=== PATIENT | female | born 1980 | race American Indian/Alaskan Native ===

== ENCOUNTER 2018-06-22 16:59 | Inpatient (IN) | payer BC ==
--- NOTE | 2018-06-22 17:34 | Emergency Department Report ---
Blank Doc - Documentation Documentation: This is a 37-year-old female that presents with uncontrolled blood pressure with left bicep pain. Stated has intermittent chest pain with no SOB. This initial assessment/diagnostic orders/clinical plan/treatment(s) is/are subject to change based on patient's health status, clinical progression and re- assessment by fellow clinical providers in the ED. Further treatment and workup at subsequent clinical providers discretion. Patient/guardians urged not to elope from the ED as their condition may be serious if not clinically assessed and managed. Initial orders include: 1- Patient sent to MAIN for further evaluation and treatment 2- EKg 3- labs 4- CXR
--- NOTE | 2018-06-22 18:20 | XRay Report ---
PROCEDURE: XR CHEST ROUTINE 2V TECHNIQUE: 2 view chest HISTORY: Chest Pain COMPARISONS: FINDINGS: Cardiac and mediastinal contours are unremarkable. No focal pulmonary infiltrate identified. No pleur al fluid collection seen. Pulmonary vasculature is unremarkable IMPRESSION: Negative two-view chest. This document is electronically signed by Michael Radford MD., June 22 2018 06:17:56 PM ET
[2018-06-22 18:24] LABS: BUN/Creatinine Ratio 10; Blood Urea Nitrogen 8 mg/dL (7-17); Calcium 9.6 mg/dL (8.4-10.2); Eosinophils % (Auto) 0.5 % (0.0-4.3); Hematocrit 41.2 % (30.3-42.9); Hemoglobin 13.1 gm/dl (10.1-14.3); Hemolysis Index 19; Lymphocytes % (Auto) 32.5 % (13.4-35.0); Mean Corpuscular HGB Conc 32 % (30-34); Mean Corpuscular Volume 74 fl (79-97); Monocytes % (Auto) 13.2 % (0.0-7.3); Platelet Count 295 K/mm3 (140-440); Red Blood Count 5.57 M/mm3 (3.65-5.03); Red Cell Distribution Width 15.8 % (13.2-15.2)
[2018-06-22 18:25] LABS: INR 0.84 (0.87-1.13); Lymphocytes # (Auto) 1.1 K/mm3 (1.2-5.4); Monocytes # (Auto) 0.4 K/mm3 (0.0-0.8)
[2018-06-22 18:26] LABS: Partial Thromboplastin Time 23.5 Sec. (24.2-36.6)
--- NOTE | 2018-06-22 20:34 | Emergency Department Report ---
ED Chest Pain HPI - General Chief Complaint: High BP Stated Complaint: HBP Time Seen by Provider: 06/22/18 17:32 Source: patient, RN notes reviewed Mode of arrival: Ambulatory Limitations: No Limitations - History of Present Illness Initial Comments: Primary care doctor: Dr. Mcintyre Past medical history hypertension, currently on metoprolol This is a 37-year-old female, not known to this provider previously, who presents to the emergency room with a complaint of nontraumatic central chest pain, and associated left arm pain and numbness. The symptoms started at 12:00, and they're intermittent. The chest pain does not radiate to the back, arms or neck. There is positive nausea, no vomiting, there is questionable diaphoresis, the patient denies shortness of breath. The patient denies recent aspirin use, and denies DVT, pulmonary embolus risk factors. Patient indicates no recent cardiac risk stratification. The pain does not have exacerbating or relieving factors. The patient reports that since her blood pressure medicine was changed, from a medication that she cannot recall, 2 metoprolol, approximately 1-2 weeks ago, she has been having episodes of chest discomfort. However, the associated left arm discomfort, nausea, questionable diaphoresis are new for the patient. MD Complaint: chest pain -: Gradual, hour(s), days(s) Onset: during rest Pain Location: substernal Severity: moderate Severity scale (0 -10): 8 Quality: aching Consistency: intermittent Improves With: nothing Worsens With: nothing re: nausea, diaphoresis Aspirin use within the Past 7 Days: (0) No - Related Data On Oral Contraceptives: No Home Medications Medication Instructions Recorded Confirmed Last Taken Mag Hydrox/Aluminum Hyd/Simeth 05/20/13 05/20/13 Unknown [Maalox Advanced Suspension] Previous Rx's Medication Instructions Recorded Last Taken Type Omeprazole [Prilosec] 20 mg PO QDAY #20 capsule. 05/20/13 Unknown Rx Allergies Allergy/AdvReac Type Severity Reaction Status Date / Time No Known Allergies Allergy Unverified 05/20/13 16:33 Heart Score - HEART Score History: Moderately suspicious EKG: Non-specific Age: < 45 Risk factors: 1-2 risk factors Troponin: < normal limit HEART Score: 3 - Critical Actions Critical Actions: 0-3 pts:0.9-1.7%risk of adverse cardiac event.Candidate for discharge ED Review of Systems ROS: Stated complaint: HBP Other details as noted in HPI Constitutional: denies: fever, malaise Eyes: denies: vision change ENT: denies: throat pain Respiratory: denies: cough Cardiovascular: chest pain Gastrointestinal: nausea. denies: abdominal pain Genitourinary: denies: dysuria Musculoskeletal: denies: back pain Skin: denies: lesions Neurological: denies: weakness Psychiatric: anxiety ED Past Medical Hx - Past Medical History Hx Hypertension: Yes - Surgical History Past Surgical History?: No - Social History Smoking Status: Former Smoker Substance Use Type: Alcohol - Medications Home Medications: Home Medications Medication Instructions Recorded Confirmed Last Taken Type Mag Hydrox/Aluminum Hyd/Simeth 05/20/13 05/20/13 Unknown History [Maalox Advanced Suspension] Omeprazole [Prilosec] 20 mg PO QDAY #20 capsule. 05/20/13 Unknown Rx ED Physical Exam - General Limitations: No Limitations General appearance: alert, in no apparent distress - Head Head exam: Present: atraumatic, normocephalic - Eye Eye exam: Present: normal appearance, EOMI. Absent: nystagmus - ENT ENT exam: Present: normal exam, normal orophraynx, mucous membranes moist, normal external ear exam - Neck Neck exam: Present: normal inspection, full ROM. Absent: tenderness, meni ngismus - Respiratory Respiratory exam: Present: normal lung sounds bilaterally. Absent: respiratory distress - Cardiovascular Cardiovascular Exam: Present: regular rate, normal rhythm, normal heart sounds. Absent: bradycardia, tachycardia, irregular rhythm, systolic murmur, diastolic murmur, rubs, gallop - GI/Abdominal GI/Abdominal exam: Present: soft. Absent: distended, tenderness, guarding, rebound, rigid, pulsatile mass - Extremities Exam Extremities exam: Present: normal inspection (2+ pulses noted in the bilateral upper, lower extremities. Compartments soft. No long bony tenderness. The pelvis is stable.), full ROM, other (there is no palpable cord. There is negative Homans sign.). Absent: pedal edema, joint swelling, calf tenderness - Back Exam Back exam: Present: normal inspection, full ROM. Absent: tenderness, CVA tenderness (R), paraspinal tenderness, vertebral tenderness - Neurological Exam Neurological exam: Present: alert, other (Extraocular movements intact. Tongue midline. No facial droop. Facial sensation intact to light touch in the V1, V2, V3 distribution bilaterally. 5 and 5 strength in 4 extremities.. Sensation is intact to light touch in 4 extremities.). Absent: motor sensory deficit - Psychiatric Psychiatric exam: Present: normal affect, normal mood - Skin Skin exam: Present: warm, dry, intact, normal color. Absent: rash ED Course Vital Signs 06/22/18 06/22/18 17:27 20:35 Temperature 98.1 F 98.3 F Pulse Rate 89 74 Respiratory 20 15 Rate Blood Pressure 172/101 Blood Pressure 141/90 [Right] O2 Sat by Pulse 100 100 Oximetry CHRIS score - Chris Score Age > 65: (0) No Aspirin use within the Past 7 Days: (0) No 3 or more CAD Risk Factors: (0) No 2 or more Angina events in past 24 hrs: (0) No Known CAD with more than 50% Stenosis: (0) No Elevated Cardiac Markers: (0) No ST Deviation Greater than 0.5mm: (0) No CHRIS Score: 0 ED Medical Decision Making - Lab Data Result diagrams: 06/22/18 17:47 06/22/18 17:47 Vital Signs 06/22/18 06/22/18 17:27 20:35 Temperature 98.1 F 98.3 F Pulse Rate 89 74 Respiratory 20 15 Rate Blood Pressure 172/101 Blood Pressure 141/90 [Right] O2 Sat by Pulse 100 100 Oximetry Lab Results 06/22/18 06/22/18 06/22/18 Range/Units 17:47 17:47 17:47 WBC 3.4 L (4.5-11.0) K/mm3 RBC 5.57 H (3.65-5.03) M/mm3 Hgb 13.1 (10.1-14.3) gm/dl Hct 41.2 (30.3-42.9) % MCV 74 L (79-97) fl MCH 24 L (28-32) pg MCHC 32 (30-34) % RDW 15.8 H (13.2-15.2) % Plt Count 295 (140-440) K/mm3 Lymph % (Auto) 32.5 (13.4-35.0) % [place] % (Auto) 13.2 H (0.0-7.3) % Eos % (Auto) 0.5 (0.0-4.3) % Baso % (Auto) 1.0 (0.0-1.8) % Lymph # 1.1 L (1.2-5.4) K/mm3 [place] # 0.4 (0.0-0.8) K/mm3 Eos # 0.0 (0.0-0.4) K/mm3 Baso # 0.0 (0.0-0.1) K/mm3 Seg Neutrophils % 52.8 (40.0-70.0) % Seg Neutrophils # 1.8 (1.8-7.7) K/mm3 PT 12.0 L (12.2-14.9) Sec. INR 0.84 L (0.87-1.13) APTT 23.5 L (24.2-36.6) Sec. Sodium 139 (137-145) mmol/L Potassium 4.5 (3.6-5.0) mmol/L Chloride 99.1 (98-107) mmol/L Carbon Dioxide 29 (22-30) mmol/L Anion Gap 15 mmol/L BUN 8 (7-17) mg/dL Creatinine 0.8 (0.7-1.2) mg/dL Estimated GFR > 60 ml/min BUN/Creatinine Ratio 10 % Glucose 90 (65-100) mg/dL Calcium 9.6 (8.4-10.2) mg/dL Troponin T < 0.010 (0.00-0.029) ng/mL - EKG Data -: EKG Interpreted by [place] EKG shows normal: sinus rhythm Rate: normal - EKG Data When compared to previous EKG there are: previous EKG unavailable 06/22/18 20:50 Sinus rhythm, left axis deviation, left anterior fascicular block, QTC within normal limits, abnormal EKG, atrial enlargement, not consistent with ST elevation myocardial infarction. there is no prior EKG available for comparison. - Radiology Data Radiology results: report reviewed, image reviewed X-ray the chest is interpreted as negative for acute disease. - Medical Decision Making Differential diagnosis, including but not limited to: GERD, gastritis, hiatal hernia, pneumonia, acute coronary syndrome Assessment and plan: 37-year-old female with hypertension, reports no recent , does not take oral contraceptives, denies having delivered a child within the past 6 weeks, low risk by well's criteria, no pulmonary embolus or DVT risk factors, perc negative, presenting with chest pain, nausea, and left arm pain. Patient has an abnormal EKG and is found to be hypertensive. X-ray of the chest unremarkable, patient has equal pulses in the bilateral upper, lower extremities, and no recent cardiac risk stratification. I have recommended admission to the hospital for cardiac risk certification, and the patient is amenable to this plan of care. Blood pressure is improved at the 140s, she will be given Pepcid, aspirin, as she did not should glycerin. Nurse practitioner,Giancarlo Sosa, is going to admit the patient to the medical service for cardiac risk stratification. Critical care attestation.: If time is entered above; I have spent that time in minutes in the direct care of this critically ill patient, excluding procedure time. ED Disposition Clinical Impression: Chest pain, Hypertension, Abnormal EKG Disposition: OP ADMIT IP TO THIS HOSP Is pt being admited?: Yes Condition: Good Instructions: Chest Pain (ED), Hypertension (ED) Referrals: DR. JANELL [Other] - 3-5 Days
[2018-06-22] MEDS ORDERED: PEPCID PO ONE (20:42)
[2018-06-22] MEDS ORDERED: NITROSTAT SL PRN (20:42)
[2018-06-22] MEDS ORDERED: ASPIRIN PO ONE (20:42)
[2018-06-22] MEDS ORDERED: ZOFRAN IV PRN (21:10)
[2018-06-22] MEDS ORDERED: MORPHINE IV PRN (21:10)
[2018-06-22] MEDS ORDERED: SODIUM CHLORIDE FLUSH SYRINGE 10 ML IV PRN ×2 (21:10)
[2018-06-22] MEDS ORDERED: TYLENOL PO PRN (21:10)
--- NOTE | 2018-06-22 21:35 | History and Physical Report ---
<LUIZA PATEL - Last Filed: 06/23/18 01:00> History of Present Illness Date of examination: 06/22/18 Date of admission: 06/22/18 Chief complaint: Chest pain, hypertension History of present illness: Pt is a 37-year-old female with PMHx of HTN, vitamine D deficiency who presents to the ER with complaint chest pain, and associated left arm pain and numbness. Pt states that the symptoms started while she was at work today, she describe a midsternal chest pressure, radiating to the left arms. Pt denied any palpitation, denies any SOB, denies nausea, denies vomiting, denies diaphoresis, denies headache. Patient states that she had experienced the same chest pain earlier in the week, she took her blood pressure at that time and it was elevated, 3 days ago she saw her PCP who had changed her medication for the 3rd time, she was started on Lopressor because her heart rate was also elevated. Pt denies cigarette smoking, she used to smoke 3 cigarettes per day but quit 6 months ago, she denies alcohol used, denies any other medical problem. In the ER physician EKG showed no ST BMI criteria, BP was elevated to 172/101, cardiac enzymes were negative, patient is admitted for further evaluation of the chest. Past History Past Medical History: hypertension Past Surgical History: Social history: lives with family (child) Family history: other (mother of sarcoidoses and heart failure) Medications and Allergies Allergies Allergy/AdvReac Type Severity Reaction Status Date / Time No Known Allergies Allergy Unverified 05/20/13 16:33 Home Medications Medication Instructions Recorded Confirmed Last Taken Type Metoprolol [Lopressor] 25 mg PO DAILY 06/22/18 06/22/18 Unknown History Active Meds: Active Medications Nitroglycerin (Nitrostat) 0.4 mg SL .Q5MIN PRN PRN Reason: Chest Pain Review of Systems Cardiovascular: chest pain Musculoskeletal: shooting arm pain Exam - Constitutional Vitals: Temp Pulse Resp BP Pulse Ox 98.3 F 74 15 141/90 100 06/22/18 20:35 06/22/18 20:35 06/22/18 20:35 06/22/18 20:35 06/22/18 20:35 General appearance: Present: no acute distress - EENT Eyes: Present: EOM intact ENT: hearing intact - Neck Neck: Present: supple - Respiratory Respiratory effort: normal Respiratory: bilateral: CTA - Cardiovascular Rhythm: regular - Extremities Extremities: no ischemia Peripheral Pulses: within normal limits - Abdominal General gastrointestinal: Present: non-tender, non-distended Female genitourinary: Present: deferred - Rectal Rectal Exam: deferred - Integumentary Integumentary: Present: warm, dry - Musculoskeletal Musculoskeletal: generalized weakness - Psychiatric Psychiatric: appropriate mood/affect, cooperative - Neurologic Neurologic: moves all extremities - Allied Health Allied health notes reviewed: nursing Results - Labs CBC & Chem 7: 06/22/18 21:47 06/22/18 21:47 Labs: Laboratory Last Values WBC 3.4 K/mm3 (4.5-11.0) L 06/22/18 17:47 RBC 5.57 M/mm3 (3.65-5.03) H 06/22/18 17:47 Hgb 13.1 gm/dl (10.1-14.3) 06/22/18 17:47 Hct 41.2 % (30.3-42.9) 06/22/18 17:47 MCV 74 fl (79-97) L 06/22/18 17:47 MCH 24 pg (28-32) L 06/22/18 17:47 MCHC 32 % (30-34) 06/22/18 17:47 RDW 15.8 % (13.2-15.2) H 06/22/18 17:47 Plt Count 295 K/mm3 (140-440) 06/22/18 17:47 Lymph % (Auto) 32.5 % (13.4-35.0) 06/22/18 17:47 [place] % (Auto) 13.2 % (0.0-7.3) H 06/22/18 17:47 Eos % (Auto) 0.5 % (0.0-4.3) 06/22/18 17:47 Baso % (Auto) 1.0 % (0.0-1.8) 06/22/18 17:47 Lymph # 1.1 K/mm3 (1.2-5.4) L 06/22/18 17:47 [place] # 0.4 K/mm3 (0.0-0.8) 06/22/18 17:47 Eos # 0.0 K/mm3 (0.0-0.4) 06/22/18 17:47 Baso # 0.0 K/mm3 (0.0-0.1) 06/22/18 17:47 Seg Neutrophils % 52.8 % (40.0-70.0) 06/22/18 17:47 Seg Neutrophils # 1.8 K/mm3 (1.8-7.7) 06/22/18 17:47 PT 12.0 Sec. (12.2-14.9) L 06/22/18 17:47 INR 0.84 (0.87-1.13) L 06/22/18 17:47 APTT 23.5 Sec. (24.2-36.6) L 06/22/18 17:47 Sodium 139 mmol/L (137-145) 06/22/18 17:47 Potassium 4.5 mmol/L (3.6-5.0) 06/22/18 17:47 Chloride 99.1 mmol/L (98-107) 06/22/18 17:47 Carbon Dioxide 29 mmol/L (22-30) 06/22/18 17:47 Anion Gap 15 mmol/L 06/22/18 17:47 BUN 8 mg/dL (7-17) 06/22/18 17:47 Creatinine 0.8 mg/dL (0.7-1.2) 06/22/18 17:47 Estimated GFR > 60 ml/min 06/22/18 17:47 BUN/Creatinine Ratio 10 % 06/22/18 17:47 Glucose 90 mg/dL (65-100) 06/22/18 17:47 Calcium 9.6 mg/dL (8.4-10.2) 06/22/18 17:47 Troponin T < 0.010 ng/mL (0.00-0.029) 06/22/18 17:47 Assessment and Plan Assessment and plan: 1. Chest pain rule out ACS 2. Accelerated hypertension 3. Vitamin D deficiency Plan: Admit to med telemetry Continue cardiac enzymes every 62 Vital signs per unit routine Cardiac diet/nothing by mouth postmidnight Stress test in the morning Resume home meds Discipline in the a.m. if stress test negative Plan of care was discussed with patient, who voiced understanding Patient's condition and plan of care was discussed with Dr. Mcfadden Advance Directives: Yes VTE prophylaxis?: Mechanical Plan of care discussed with patient/family: Yes <ORLANDO MCFADDEN - Last Filed: 06/23/18 05:16> History of Present Illness Date of admission: 06/22/18 22:31 Medications and Allergies Active Meds: Active Medications Acetaminophen (Tylenol) 650 mg PO Q4H PRN PRN Reason: Pain MILD(1-3)/Fever >100.5/CROSS Aspirin (Ecotrin) 325 mg PO QDAY [facility] Morphine Sulfate (Morphine) 2 mg IV Q4H PRN PRN Reason: Pain, Moderate (4-6) Nitroglycerin (Nitrostat) 0.4 mg SL .Q5MIN PRN PRN Reason: Chest Pain Ondansetron HCl (Zofran) 4 mg IV Q8H PRN PRN Reason: Nausea And Vomiting Sodium Chloride (Sodium Chloride Flush Syringe 10 Ml) 10 ml IV PRN PRN PRN Reason: LINE FLUSH Sodium Chloride (Sodium Chloride Flush Syringe 10 Ml) 10 ml IV PRN PRN PRN Reason: LINE FLUSH Sodium Chloride (Sodium Chloride Flush Syringe 10 Ml) 10 ml IV BID [facility] Last Admin: 06/22/18 23:25 Dose: 10 ml Documented by: Exam - Constitutional Vitals: Temp Pulse Resp BP Pulse Ox 98.6 F 70 16 140/79 95 06/23/18 00:15 06/23/18 01:07 06/23/18 01:07 06/23/18 00:15 06/23/18 01:07 Results - Labs CBC & Chem 7: 06/22/18 21:47 06/22/18 21:47 Labs: Laboratory Last Values WBC 3.3 K/mm3 (4.5-11.0) L 06/22/18 21:47 RBC 5.23 M/mm3 (3.65-5.03) H 06/22/18 21:47 Hgb 12.2 gm/dl (10.1-14.3) 06/22/18 21:47 Hct 39.0 % (30.3-42.9) 06/22/18 21:47 MCV 75 fl (79-97) L 06/22/18 21:47 MCH 23 pg (28-32) L 06/22/18 21:47 MCHC 31 % (30-34) 06/22/18 21:47 RDW 15.8 % (13.2-15.2) H 06/22/18 21:47 Plt Count 269 K/mm3 (140-440) 06/22/18 21:47 Lymph % (Auto) 42.5 % (13.4-35.0) H 06/22/18 21:47 [place] % (Auto) 13.9 % (0.0-7.3) H 06/22/18 21:47 Eos % (Auto) 0.7 % (0.0-4.3) 06/22/18 21:47 Baso % (Auto) 1.0 % (0.0-1.8) 06/22/18 21:47 Lymph # 1.4 K/mm3 (1.2-5.4) 06/22/18 21:47 [place] # 0.5 K/mm3 (0.0-0.8) 06/22/18 21:47 Eos # 0.0 K/mm3 (0.0-0.4) 06/22/18 21:47 Baso # 0.0 K/mm3 (0.0-0.1) 06/22/18 21:47 Seg Neutrophils % 41.9 % (40.0-70.0) 06/22/18 21:47 Seg Neutrophils # 1.4 K/mm3 (1.8-7.7) L 06/22/18 21:47 PT 12.0 Sec. (12.2-14.9) L 06/22/18 17:47 INR 0.84 (0.87-1.13) L 06/22/18 17:47 APTT 23.5 Sec. (24.2-36.6) L 06/22/18 17:47 Sodium 139 mmol/L (137-145) 06/22/18 21:47 Potassium 4.5 mmol/L (3.6-5.0) 06/22/18 21:47 Chloride 100.8 mmol/L (98-107) 06/22/18 21:47 Carbon Dioxide 25 mmol/L (22-30) 06/22/18 21:47 Anion Gap 18 mmol/L 06/22/18 21:47 BUN 7 mg/dL (7-17) 06/22/18 21:47 Creatinine 0.7 mg/dL (0.7-1.2) 06/22/18 21:47 Estimated GFR > 60 ml/min 06/22/18 21:47 BUN/Creatinine Ratio 10 % 06/22/18 21:47 Glucose 82 mg/dL (65-100) 06/22/18 21:47 Calcium 8.9 mg/dL (8.4-10.2) 06/22/18 21:47 Troponin T < 0.010 ng/mL (0.00-0.029) 06/22/18 21:04 Triglycerides 71 mg/dL (2-149) 06/22/18 21:47 Cholesterol 163 mg/dL (50-199) 06/22/18 21:47 LDL Cholesterol Direct 110 mg/dL (50-130) 06/22/18 21:47 HDL Cholesterol 41 mg/dL (40-59) 06/22/18 21:47 Cholesterol/HDL Ratio 3.97 % 06/22/18 21:47 Assessment and Plan Assessment and plan: 37-year-old and a history of hypertension plus emergency room with complaints of chest pain 3 days. Medication was recently switched, chest pain started at the onset, her blood pressures been uncontrolled. Evaluate cardiac enzymes and stress test as discussed above, patient seen and examined with nurse practitioner. Follow-up med Rec
[2018-06-22 22:12] LABS: Eosinophils % (Auto) 0.7 % (0.0-4.3); Hemoglobin 12.2 gm/dl (10.1-14.3); Lymphocytes # (Auto) 1.4 K/mm3 (1.2-5.4); Lymphocytes % (Auto) 42.5 % (13.4-35.0); Mean Corpuscular HGB Conc 31 % (30-34); Mean Corpuscular Volume 75 fl (79-97); Monocytes # (Auto) 0.5 K/mm3 (0.0-0.8); Monocytes % (Auto) 13.9 % (0.0-7.3); Platelet Count 269 K/mm3 (140-440); Red Blood Count 5.23 M/mm3 (3.65-5.03); Red Cell Distribution Width 15.8 % (13.2-15.2)
[2018-06-22 22:29] LABS: BUN/Creatinine Ratio 10; Blood Urea Nitrogen 7 mg/dL (7-17); Calcium 8.9 mg/dL (8.4-10.2); Hemolysis Index 7
[2018-06-22] MEDS: SODIUM CHLORIDE FLUSH SYRINGE 10 ML IV SCH (23:25)
[2018-06-22 23:36] LABS: Chol/HDL Ratio 3.97 %
[2018-06-23] MEDS ORDERED: APRESOLINE IV PRN (05:16)
[2018-06-23] MEDS ORDERED: ECOTRIN PO SCH (10:00)
[2018-06-23] MEDS: SODIUM CHLORIDE FLUSH SYRINGE 10 ML IV SCH (11:36)
[2018-06-23 12:19] VITALS: BP 134/75
--- NOTE | 2018-06-23 12:50 | Progress Note ---
Assessment and Plan Assessment and plan: Chest pain. Await Lexiscan results. Check d-dimer. Cardiac isoenzymes have been negative. EKG with no ST-T wave changes. Hypertension. Resume metoprolol. History Interval history: No new issues overnight. Patient denies any chest pain currently. Hospitalist Physical - Constitutional Vitals: Temp Pulse Resp BP Pulse Ox 97.9 F 81 20 134/75 99 06/23/18 12:17 06/23/18 12:17 06/23/18 12:17 06/23/18 12:17 06/23/18 12:17 General appearance: Present: no acute distress - EENT Eyes: Present: PERRL, EOM intact ENT: hearing intact, clear oral mucosa, dentition normal - Neck Neck: Present: supple, normal ROM - Respiratory Respiratory effort: normal Respiratory: bilateral: CTA - Cardiovascular Rhythm: regular Heart Sounds: Present: S1 & S2. Absent: gallop, rub - Extremities Extremities: no ischemia, No edema, Full ROM - Abdominal General gastrointestinal: soft, non-tender, non-distended, normal bowel sounds - Integumentary Integumentary: Present: clear, warm, dry - Neurologic Neurologic: CNII-XII intact, moves all extremities Results - Labs CBC & Chem 7: 06/22/18 21:47 06/22/18 21:47 Labs: Laboratory Last Values WBC 3.3 K/mm3 (4.5-11.0) L 06/22/18 21:47 RBC 5.23 M/mm3 (3.65-5.03) H 06/22/18 21:47 Hgb 12.2 gm/dl (10.1-14.3) 06/22/18 21:47 Hct 39.0 % (30.3-42.9) 06/22/18 21:47 MCV 75 fl (79-97) L 06/22/18 21:47 MCH 23 pg (28-32) L 06/22/18 21:47 MCHC 31 % (30-34) 06/22/18 21:47 RDW 15.8 % (13.2-15.2) H 06/22/18 21:47 Plt Count 269 K/mm3 (140-440) 06/22/18 21:47 Lymph % (Auto) 42.5 % (13.4-35.0) H 06/22/18 21:47 [place] % (Auto) 13.9 % (0.0-7.3) H 06/22/18 21:47 Eos % (Auto) 0.7 % (0.0-4.3) 06/22/18 21:47 Baso % (Auto) 1.0 % (0.0-1.8) 06/22/18 21:47 Lymph # 1.4 K/mm3 (1.2-5.4) 06/22/18 21:47 [place] # 0.5 K/mm3 (0.0-0.8) 06/22/18 21:47 Eos # 0.0 K/mm3 (0.0-0.4) 06/22/18 21:47 Baso # 0.0 K/mm3 (0.0-0.1) 06/22/18 21:47 Seg Neutrophils % 41.9 % (40.0-70.0) 06/22/18 21:47 Seg Neutrophils # 1.4 K/mm3 (1.8-7.7) L 06/22/18 21:47 PT 12.0 Sec. (12.2-14.9) L 06/22/18 17:47 INR 0.84 (0.87-1.13) L 06/22/18 17:47 APTT 23.5 Sec. (24.2-36.6) L 06/22/18 17:47 Sodium 139 mmol/L (137-145) 06/22/18 21:47 Potassium 4.5 mmol/L (3.6-5.0) 06/22/18 21:47 Chloride 100.8 mmol/L (98-107) 06/22/18 21:47 Carbon Dioxide 25 mmol/L (22-30) 06/22/18 21:47 Anion Gap 18 mmol/L 06/22/18 21:47 BUN 7 mg/dL (7-17) 06/22/18 21:47 Creatinine 0.7 mg/dL (0.7-1.2) 06/22/18 21:47 Estimated GFR > 60 ml/min 06/22/18 21:47 BUN/Creatinine Ratio 10 % 06/22/18 21:47 Glucose 82 mg/dL (65-100) 06/22/18 21:47 Calcium 8.9 mg/dL (8.4-10.2) 06/22/18 21:47 Troponin T < 0.010 ng/mL (0.00-0.029) 06/23/18 06:49 Triglycerides 71 mg/dL (2-149) 06/22/18 21:47 Cholesterol 163 mg/dL (50-199) 06/22/18 21:47 LDL Cholesterol Direct 110 mg/dL (50-130) 06/22/18 21:47 HDL Cholesterol 41 mg/dL (40-59) 06/22/18 21:47 Cholesterol/HDL Ratio 3.97 % 06/22/18 21:47 HCG, Qual Negative (Negative) 06/23/18 07:30 Active Medications - Current Medications Current Medications: Generic Name Dose Route Start Last Admin Trade Name Freq PRN Reason Stop Dose Admin Acetaminophen 650 mg 06/22/18 21:10 Tylenol PO Q4H PRN Pain MILD(1-3)/Fever >100.5/CROSS Aspirin 325 mg 06/23/18 10:00 06/23/18 11:36 Ecotrin PO 325 mg QDAY IMAN Administration Hydralazine HCl 5 mg 06/23/18 05:16 Apresoline IV Q6H PRN Hypertension Morphine Sulfate 2 mg 06/22/18 21:10 Morphine IV Q4H PRN Pain, Moderate (4-6) Nitroglycerin 0.4 mg 06/22/18 20:42 Nitrostat SL .Q5MIN PRN Chest Pain Ondansetron HCl 4 mg 06/22/18 21:10 Zofran IV Q8H PRN Nausea And Vomiting Sodium Chloride 10 ml 06/22/18 21:10 Sodium Chloride Flush Syringe 10 Ml IV PRN PRN LINE FLUSH Sodium Chloride 10 ml 06/22/18 22:00 06/23/18 11:36 Sodium Chloride Flush Syringe 10 Ml IV 10 ml BID IMAN Administration
--- NOTE | 2018-06-23 17:07 | Discharge Summary ---
Providers - Providers Date of Admission: 06/22/18 22:31 Date of discharge: 06/23/18 Attending physician: LUIZA CAT 06/22/18 Consult to Cardiac Rehabilitation [CONS] Routine Reason For Exam: Phase I Hospitalization Reason for admission: cp Condition: Good Hospital course: Pt is a 37-year-old female with PMHx of HTN, vitamin D deficiency who presented to the ER with complaint chest pain, and associated left arm pain and numbness. Pt stated that the symptoms started while she was at work the [employer]. She described a midsternal chest pressure, radiating to the left arms. Pt denied any palpitation, denies any SOB, denies nausea, denies vomiting, denies diaphoresis, denies headache. Patient states that she had experienced the same chest pain earlier in the week. She reports that she took her blood pressure at that time and it was elevated. Also, 3 days ago, she saw her PCP who had changed her medication for the 3rd time, she was started on Lopressor because her heart rate was also elevated. Pt denies cigarette smoking, she used to smoke 3 cigarettes per day but quit 6 months ago. She denied alcohol use or any other medical problem. In the ER, EKG showed no ST BMI criteria, BP was elevated to 172/101, cardiac enzymes were negative. The patient was admitted with dx of chest pain. The patient underwent a stress test that was found to be negative. The patient also had a D dimer that was found to be negative as well.The paces chest pain resolved and she was felt to have received maximal hospital benefit for discharge. Dedicated discharge time 32 minutes. Disposition: - TO HOME OR SELFCARE Time spent for discharge: 32 - Discharge Diagnoses (1) Chest pain Status: Acute (2) Hypertension Status: Acute Core Measure Documentation - Palliative Care Palliative Care/ Comfort Measures: Not Applicable - Core Measures Any of the following diagnoses?: none Exam - Constitutional Vitals: Temp Pulse Resp BP Pulse Ox 97.9 F 81 20 134/75 99 06/23/18 12:17 06/23/18 12:17 06/23/18 12:17 06/23/18 12:17 06/23/18 12:17 General appearance: Present: no acute distress, well-nourished - EENT Eyes: Present: PERRL ENT: hearing intact, clear oral mucosa - Neck Neck: Present: supple, normal ROM - Respiratory Respiratory effort: normal Respiratory: bilateral: CTA - Cardiovascular Heart Sounds: Present: S1 & S2. Absent: rub, click - Extremities Extremities: pulses symmetrical, No edema Peripheral Pulses: within normal limits - Abdominal General gastrointestinal: Present: soft, non-tender, non-distended, normal bowel sounds Female genitourinary: Present: normal - Integumentary Integumentary: Present: clear, warm, dry - Musculoskeletal Musculoskeletal: gait normal, strength equal bilaterally - Psychiatric Psychiatric: appropriate mood/affect, intact judgment & insight - Neurologic Neurologic: CNII-XII intact, moves all extremities Plan Activity: no restrictions Weight Bearing Status: Weight Bear as Tolerated Follow up with: DR. JANELL [Other] - 3-5 Days
--- NOTE | 2018-06-23 21:07 | Treadmill Report ---
SINGLE ISOTOPE DUAL STUDY MYOCARDIAL PERFUSION SCAN REPORT AGE: 37 SEX: Female. REFERRING HOSPITALIST: Neymar Malone. Referred and dictated by Dr. Sadi Simms. PROCEDURE PREFORMED: The patient received 10 mCi of technetium 99m Myoview intravenously under resting conditions. Resting myocardial perfusion scan was done. Subsequently, the patient underwent exercise stress test as per the standard Del protocol. During exercise stress test, the patient received 28 mCi of technetium 99m Myoview intravenously. After 30-60 minutes, post stress images were done. Computerized reconstruction image were performed for analysis. The post-stress images revealed uniform distribution of the radiopharmaceutical in the left ventricular myocardium. Cinematic display of the gated study did not reveal any wall motion abnormality. The left ventricular ejection fraction was normal and was calculated to be 64%. The resting images were normal. CONCLUSION: 1. Normal resting and stress myocardial perfusion scan images after the patient underwent exercise stress nuclear scan. 2. No wall motion abnormality. 3. Normal left ventricular systolic function with the LVEF of 64%. JOB# [id number] [facility]
[2018-06-24] MEDS ORDERED: LOPRESSOR PO SCH (10:00)
== END 2018-06-23 17:51 | disposition home or self-care (01) | DRG 392 ==
LOC: ED 16:59 → 4A 22:31
PROVIDERS: ADMIT Internal Medicine; ATTEND Hospitalist
DX: K21.9 Gastro-esophageal reflux disease without esophagitis (principal); R07.9 Chest pain, unspecified; I10 Essential (primary) hypertension; E55.9 Vitamin D deficiency, unspecified; R94.31 Abnormal electrocardiogram [ECG] [EKG]; F41.9 Anxiety disorder, unspecified; Z87.891 Personal history of nicotine dependence; Z79.899 Other long term (current) drug therapy; Z72.89 Other problems related to lifestyle
CPT/HCPCS: 36415; 71046; 78452; 80048; 80061; 84484; 84703; 85025; 85379; 85610; 85730; 93005; 93010; 93017; 96374; G0378; A9502